=== PATIENT | female | born 1995 | race Caucasian/White ===

== ENCOUNTER 2016-07-26 12:41 | Emergency (ER) | payer OTHER ==
[~2016-07-26] VITALS: Ht 152.4 cm; Wt 45.0 kg
[2016-07-26 12:45] VITALS: Ht 152.4 cm; Wt 45.0 kg
[2016-07-26] MEDS ORDERED: POLY10DR19 BOTH EYES (14:08)
[2016-07-26] MEDS ORDERED: FLUT9.9S NASAL (14:09)
--- NOTE | 2016-07-26 14:17 | ERD ---
ER Documentation Chief Complaint Date/Time DATE: 07/26/16 TIME: 14:14 Chief Complaint RIGHT EYE REDNESS HPI This patient is a 20-year-old female with no significant medical history presenting to the emergency department for right eye redness and eyelash crusting which began approximately 12 hours ago. Additionally the patient reports nasal congestion. The patient has had no sick contacts. The patient does have history of pinkeye infection. The patient does not wear glasses or contacts. The patient denies vision changes, fevers, or other symptoms at this time. ROS All systems reviewed and are negative except as per history of present illness. Medications Home Meds Active Scripts Fluticasone Propionate (Flonase Allergy Relief) 9.9 Ml [place].susp, 1 SPRAY NASAL DAILY, #1 BOTTLE TO EACH NOSTRIL Prov:AUSTIN DESIR PA-C 07/26/16 Polymyxin B Sulfate-TMP* (Polymyxin B-TMP Eye Drops*) 10 Ml Drops, 1 DROP BOTH EYES QID for 7 Days, #1 BOTTLE Prov:AUSTIN DESIR PA-C 07/26/16 Allergies Allergies: Coded Allergies: No Known Allergy (Unverified , 07/26/16) PMhx/Soc Medical and Surgical Hx: pt denies Medical Hx, pt denies Surgical Hx Hx Alcohol Use: No Hx Substance Use: No Hx Tobacco Use: No Smoking Status: Never smoker FmHx Noncontributory for chief complaint. Physical Exam Vitals Vital Signs Date Time Temp Pulse Resp B/P Pulse Ox O2 Delivery O2 Flow Rate FiO2 07/26/16 12:45 98.1 81 18 130/81 99 Physical Exam Const: The patient is resting comfortably in no acute distress. Head: Atraumatic Eyes: There is right-sided conjunctival injection. The left conjunctive is normal in appearance. EOMs are intact bilaterally. ENT: Normal External Ears, Nose and Mouth. Neck: Full range of motion..~ No meningismus. Resp: Clear to auscultation bilaterally Cardio: Regular rate and rhythm, no murmurs Abd: Soft, non tender, non distended. Normal bowel sounds Skin: No petechiae or rashes Back: No midline or flank tenderness Ext: No cyanosis, or edema Neur: Awake and alert Psych: Normal Mood and Affect Procedures/MDM 20-year-old female presents secondary to complaints of right sided conjunctival injection and nasal congestion.. On physical examination the patient's vitals are within normal limits. The patient is afebrile. Examination of the right conjunctival reveals injection. EOMs are intact bilaterally. I have low suspicion for periorbital cellulitis, orbital cellulitis, ocular entrapment, septicemia, or other emergent conditions. The patient is stable for outpatient management with a prescription for Polytrim and Flonase. Diagnoses include conjunctivitis and nasal congestion. The patient agrees with the discharge plan and diagnosis. The patient was given strict ER return precautions. The patient is to follow-up with his primary care physician. Departure Diagnosis: Primary Impression: Conjunctivitis Conjunctivitis type: unspecified Laterality: right Qualified Code: H10.9 - Conjunctivitis of right eye, unspecified conjunctivitis type Additional Impression: Nasal congestion Condition: Fair Patient Instructions: Conjunctivitis Caused by Infection Referrals: [facility] YOU HAVE RECEIVED A MEDICAL SCREENING EXAM AND THE RESULTS INDICATE THAT YOU DO NOT HAVE A CONDITION THAT REQUIRES URGENT TREATMENT IN THE EMERGENCY DEPARTMENT. FURTHER EVALUATION AND TREATMENT OF YOUR CONDITION CAN WAIT UNTIL YOU ARE SEEN IN YOUR DOCTORS OFFICE WITHIN THE NEXT 1-2 DAYS. IT IS YOUR RESPONSIBILITY TO [facility] IF YOU HAVE A PRIMARY DOCTOR --you should call your primary doctor and schedule an appointment IF YOU DO NOT HAVE A PRIMARY DOCTOR YOU CAN CALL OUR PHYSICIAN REFERRAL HOTLINE AT IF YOU CAN NOT AFFORD TO SEE A PHYSICIAN YOU CAN CHOSE FROM THE FOLLOWING [facility] CLINICS [facility] [address] [facility]. [facility] [address] [facility] [facility] [address] [facility] [facility] [address] [facility]. [facility] [address] [facility]. [facility]. [address] Additional Instructions: Follow-up with your primary care physician within 1 week. Return to the emergency department immediately should you have any new or worsening symptoms, uncontrolled fevers, or other unexplained symptoms. Take all medications as directed. AUSTIN DESIR PA-C Jul 26, 2016 14:17
== END 2016-07-26 14:50 | disposition home or self-care (01) ==
LOC: FTE 12:41
DX: H10.9 Unspecified conjunctivitis (principal); R09.81 Nasal congestion
CPT/HCPCS: 99283